=== PATIENT | female | born 1985 | race Caucasian/White ===

== ENCOUNTER 2024-01-18 21:36 | Emergency (ER) | payer OTHER, SELFPAY ==
[2024-01-18 21:50] VITALS: BP 139/81; PULSE 79; RESP 18; TEMP 36.7; O2SAT 98; BMI 23.6
== END 2024-01-18 22:10 | disposition left against medical advice (07) ==
PROVIDERS: Emergency Provider Emergency Medicine; PCP Pediatrics
DX: M54.2 Cervicalgia (principal)
CPT/HCPCS: 99281

== ENCOUNTER 2024-01-19 21:33 | Emergency (ER) | payer OTHER, SELFPAY ==
[2024-01-19 21:44] VITALS: BP 152/86; PULSE 95; RESP 18; TEMP 36.8; O2SAT 100; BMI 24.0
[2024-01-19 22:28] LABS: COVID-19 Test Negative (Negative); IDNOW Serial# 152EDE1D
[2024-01-19 22:31] LABS: IDNOW Serial# 08D9AD1C; Influenza A Negative (Negative); Influenza B2 Negative (Negative)
--- NOTE | 2024-01-20 01:00 | ED.GENADULT ---
HPI - General Adult General Chief complaint: General Medical Stated complaint: possible sinus infection Time Seen by Provider: 01/20/24 00:33 Source: patient and RN notes reviewed Mode of arrival: ambulatory Limitations: no limitations History of Present Illness ED Provider: Leidy ALANIS narrative: 39-year-old healthy female presents for evaluation of facial pain Patient reports that 9 days ago she ?inserted a Zicom swab into her right nostril to prevent herself from getting sick while going on vacation She believes that the cotton tip of the applicator became lodged up in her right nostril She reports sharp pain to the face, sinus pressure and below her right eye. She states that she is having some blurry vision Her pain is radiating to her ears Related Data Previous Rx's ?Medication ?Instructions ?Recorded amoxicillin 500 mg tablet 500 mg PO TID #21 tabs 01/20/24 tramadol 50 mg tablet 50 mg PO Q8H PRN pain #9 tabs 01/20/24 Allergies Allergy/AdvReac Type Severity Reaction Status Date / Time No Known Allergies Allergy Verified 01/19/24 21:51 Review of Systems Constitutional: Constitutional: Denies body ache(s), Denies chills, Denies fever(s) and Reports headache(s) Eyes: Eyes: Denies blurry vision ENT: Denies ear discharge, Reports otalgia, Reports headache(s), Reports nose pain and Reports sinus pain Cardiovascular: Cardiovascular: Denies chest pain and Denies dyspnea Respiratory: Respiratory: Denies cough and Denies dyspnea Gastrointestinal: Gastrointestinal: Denies abdominal pain, Denies nausea and Denies vomiting Musculoskeletal: Musculoskeletal: Denies back pain Neurologic: Reports headache(s) PMFSH Social History Social History Advance Directives: No Advance Directives Information Provided: Yes Do you have a plan to hurt others: No Plan Physical Exam ED Vital Signs: Vital Signs - 24 hr 01/19/24 21:44 Temperature 98.2 F Pulse Rate 95 Respiratory Rate 18 Blood Pressure 152/86 H Pulse Oximetry 100 Oxygen Delivery Method Room Air BMI result Body Mass Index 24.0 Const General: healthy appearing, comfortable, no acute distress, alert and awake Nutritional Appearance: well nourished Orientation/consciousness: patient oriented x3 HENMT Other: Inspection of the right nasal passage does not show any obvious foreign body, no significant edema, no epistaxis Head: Yes normocephalic and Yes atraumatic Ears: TM's normal bilaterally and EAC's normal Face and sinus: No sinuses nontender, No erythema, No edema, Yes sinus tenderness and Yes Facial tenderness on exam of face and sinuses Throat: Yes posterior oropharynx normal Eyes Eyelids: Yes eyelids normal Conjunctivae: conjunctivae normal Sclerae: sclerae normal Corneas: corneas normal Pupils: Equal, round and reactive pupils present EOM: EOMs intact bilaterally Resp Effort & Inspection: normal respiratory effort, able to speak in complete sentences and not labored Skin General skin exam: elasticity normal Neuro General: patient oriented x3 Cranial nerves: Yes Equal, round and reactive pupils present and Yes Bilaterally intact EOM present Cognition (Neuro): normal cognition Extrem Other: Moving all extremities well without any obvious deformities Medical Decision Making Medical Decision Making MDM Narrative: This is a healthy 39-year-old female presenting for evaluation of facial pain, nose pain and a potential foreign body which I can not confirm in the right nostril. We will treat the patient amoxicillin for sinusitis given that she has reported foreign body in the eye for 9 days. We will refer the patient to outpatient ENT with Dr. Arevalo for further evaluation and management. Differential Diagnosis Differential Diagnoses: The differential diagnosis associated with the presentation includes Sinusitis Nasal trauma Epistaxis Foreign body in nostril Lab Data Labs: Lab Results 01/19/24 Range/Units 22:08 COVID-19 (TONYA) Negative (Negative) COVID-19 Clin Com See Note Influenza Type A (RHETT) Negative (Negative) Influenza Type B (RHETT) Negative (Negative) Influenza A & B Note See Note Discharge Plan Discharge Clinical Impression: Sinusitis Patient Disposition: Home, Self-Care Instructions: Sinusitis (ED) Additional Instructions: I was unable to actually see any foreign body in your nasal passage. You may call the office of Dr. Estrada tomorrow morning to schedule a follow-up appointment with a specialist In the meantime, you may use amoxicillin to treat sinusitis Use ibuprofen/Tylenol for pain. You may use tramadol for more severe breakthrough pain This may make you drowsy, do not drink alcohol or drive after taking it Prescriptions: New amoxicillin 500 mg tablet 500 mg PO TID Qty: 21 0RF tramadol 50 mg tablet 50 mg PO Q8H PRN (Reason: pain) Qty: 9 0RF Referrals: Akbar Arevalo [Physician] - (? foreign body in right nasal passage. Unable to visualize) Print Language: [place] Verde[place]
[2024-01-20] MEDS: Amoxicillin 500 MG CAPSULE PO (01:53)
[2024-01-20] MEDS: traMADoL HCL 50 MG TABLET PO (01:53)
[2024-01-20 02:01] VITALS: BP 115/77; PULSE 73; RESP 18; TEMP 36.4; O2SAT 100
[2024-01-20 02:02] VITALS: BP 115/77; PULSE 73; RESP 18; TEMP 36.4; O2SAT 100
== END 2024-01-20 02:00 | disposition home or self-care (01) ==
PROVIDERS: Emergency Provider Emergency Medicine; PCP Pediatrics
DX: J32.9 Chronic sinusitis, unspecified (principal); Z11.52 Encounter for screening for COVID-19; Z79.899 Other long term (current) drug therapy
CPT/HCPCS: 87502; 87635; 99283; 99284

== ENCOUNTER 2024-07-16 09:31 | Emergency (ER) | payer OTHER, SELFPAY ==
--- NOTE | ~2024-07-16 | CT_ITS ---
CLINICAL HISTORY: concern for right sided salivary stone CT soft tissue neck without contrast Comparison: None Findings: Right: Kvjm-ts-kpjrmdciiq enlarged, edematous right submandibular gland with surrounding ebyv-sm-kakdzzou fluid/edematous changes. Wkqe-wh-abojsxdh edematous changes are seen in the right floor of the mouth. No evidence of radiopaque salivary stone. No discrete fluid collection noted on this nonenhanced CT. No evidence of enlarged lymphadenopathy(prominent subcentimeter bilateral neck , likely reactive nodes are seen). Unremarkable parotid glands. Mild nonhomogeneous thyroid gland. Small fluid level in the left maxillary sinus and small right sphenoid sinus polyp/retention cyst. 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 IMPRESSION: Right submandibular sialoadenitis. No evidence of radiopaque salivary stone. Edematous changes extend into the right aspect of the floor of the mouth. No discrete fluid collection noted on this nonenhanced CT. 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 This document has been electronically signed by: Penelope Sorensen MD on 07/16/2024 11:22:58
[2024-07-16 09:37] VITALS: BP 126/87; PULSE 84; RESP 18; TEMP 36.4; O2SAT 100; BMI 24.2
--- NOTE | 2024-07-16 09:41 | ED_ITS ---
HPI - General Adult General Chief complaint: General Medical Stated complaint: swollen glands Time Seen by Provider: 07/16/24 11:35 Source: patient Mode of arrival: ambulatory Limitations: no limitations History of Present Illness ED Provider: Anette Avalos PA-C HPI narrative: Patient is a 39 year old assigned female at with no reported medical history presenting to the emergency department today with right sided throat and under tongue swelling / pain. Patient states that over the last few days she has had right sided throat and under tongue swelling and pain. Patient states that she was diagnosed with influenza a week ago. Patient denies any dizziness, lightheadedness, abdominal pain, nausea, vomiting, fever, chills, blurry vision, double vision, loss of vision, chest pain, difficulty breathing, shortness of breath, back pain, night sweats, pain with urination, increased urinary frequency, increased urinary urgency, blood in her urine or stool, syncope or a near syncopal episode, recent trauma or falls, bowel incontinence, bladder incontinence, or any other complaints at this time. Onset (ago): day(s) Location: neck and right Relieving factors: none Exacerbating factors: other (palpation of the area) Associated symptoms: denies other symptoms Treatments prior to arrival: none Related Data Previous Rx's ?Medication ?Instructions ?Recorded amoxicillin 500 mg tablet 500 mg PO TID #21 tabs 01/20/24 tramadol 50 mg tablet 50 mg PO Q8H PRN pain #9 tabs 01/20/24 oxycodone 5 mg tablet 5 mg PO Q6H PRN break through pain 07/16/24 only #3 tabs Allergies Allergy/AdvReac Type Severity Reaction Status Date / Time No Known Allergies Allergy Verified 07/16/24 09:38 Review of Systems 2 Constitutional: Constitutional: Reports no additional constitutional complaints, Denies chills, Denies fever(s) and Denies night sweats Eyes: Eyes: Reports no additional eye complaints, Denies blurry vision, Denies change in vision, Denies diplopia, Denies eye discharge, Denies loss of vision and Denies eye pain ENT: Denies dizziness Comments: right sided neck pain / neck swelling Cardiovascular: Cardiovascular: Reports no additional cardiovascular complaints, Denies chest pain, Denies lightheadedness, Denies Loss of Consciousness and Denies dyspnea Respiratory: Respiratory: Reports no additional respiratory complaints and Denies dyspnea Gastrointestinal: Gastrointestinal: Reports no additional gastrointestinal complaints, Denies abdominal pain, Denies melena, Denies hematochezia, Denies change in bowel habits and Denies change in stool character Genitourinary: Genitourinary: Denies hematuria, Denies urinary frequency, Denies dysuria, Denies urinary incontinence, Denies urinary hesitancy and Denies urinary urgency Musculoskeletal: Musculoskeletal: Reports no additional musculoskeletal complaints, Denies numbness and Denies tingling Neurologic: Denies dizziness, Denies loss of vision, Denies numbness and Denies tingling Psychiatric: Psychiatric: Reports no additional psychiatric complaints Endocrine: Endocrine: Reports no additional endocrine complaints Hematologic/Lymphatic: Hematologic/Lymphatic: Reports no additional hematologic/lymphatic complaints Allergic/Immunologic: Allergic/Immunologic: Reports no additional allergic/immunologic complaints PMFSH Past Medical History Attestation statement: The following information was validated with the patient. Source: old records reviewed and nursing notes reviewed Social History Social History Alcohol intake: never Advance Directives: No Advance Directives Information Provided: No Do you have a plan to hurt others: No Plan Physical Exam ED Vital Signs: Vital Signs - 24 hr 07/16/24 09:37 07/16/24 11:49 Temperature 97.6 F 97.6 F Pulse Rate 84 84 Respiratory Rate 18 18 Blood Pressure 126/87 126/87 Pulse Oximetry 100 100 Oxygen Delivery Method Room Air Room Air BMI result Body Mass Index 24.2 Const General: cooperative, no acute distress, alert and awake Nutritional Appearance: well nourished Orientation/consciousness: patient oriented x3 Limitations: no limitations [facility] Head: Yes normal to inspection and Yes atraumatic Ears: hearing grossly normal bilaterally and external ears normal General nose exam: Normal external nose present, no nasal discharge noted and no epistaxis Face and sinus: Yes normal facial exam, No abrasion and No laceration Mouth: Normal oral and palatal mucosa present, no drooling and no muffled voice Eyes General: appearance normal, both eyes and all related structures Periorbital: periorbital findings normal Eyelids: Yes eyelids normal Conjunctivae: conjunctivae normal Pupils: Equal, round and reactive pupils present EOM: EOMs intact bilaterally Neck Other: minimal swelling present to the right neck at the TMJ with painful palpation to the area Neck: Yes normal visual inspection and Yes full ROM Chest Chest palpation & inspection: normal inspection of the chest Resp Effort & Inspection: normal respiratory effort and able to speak in complete sentences GI Inspection: Yes normal to inspection Neuro General: patient oriented x3, moves all extremities and CN's II-XI intact bilaterally Cranial nerves: Yes Equal, round and reactive pupils present Cognition (Neuro): normal cognition Extrem General: Yes normal to inspection, Yes full ROM and Yes capillary refill normal Psych Appearance: grossly normal Mental Status: mental status grossly normal Affect: normal affect Attitude: cooperative Thought process: Normal thought process present Thought content: Normal thought content present Insight: Good insight present (Psych) Course Course Course Narrative: RME performed by Anette Avalos PA-C. Patient is a 39 year old assigned female at presenting to the emergency department with right sided neck swelling and concerns of a salivary stone. Detailed physical exam and review of systems are deferred to the retouching operator. Labs, imaging, and swabs ordered. Patient placed back in the waiting room pending room availability and results. Medications Administered Discontinued Medications Generic Name Dose Route Start Last Admin Trade Name Magnusq PRN Reason Stop Dose Admin Acetaminophen 975 mg 07/16/24 10:31 07/16/24 10:37 Acetaminophen 325 Mg Tablet PO 07/16/24 10:32 975 mg ONCE ONE Administration Ibuprofen 600 mg 07/16/24 10:31 07/16/24 10:38 Ibuprofen 600 Mg Tablet PO 07/16/24 10:32 600 mg ONCE ONE Administration Ketorolac Tromethamine 15 mg 07/16/24 11:36 07/16/24 11:45 Ketorolac Tromethamine 15 Mg/Ml Vial IM 07/16/24 11:37 15 mg ONCE ONE Administration Naloxone HCl 8 mg 07/16/24 11:37 07/16/24 11:47 Naloxone Hcl Nasal Take Home 4 Mg [place] NOSTRILALT 07/16/24 11:38 8 mg ONCE ONE Administration Oxycodone HCl 5 mg 07/16/24 11:36 07/16/24 11:45 Oxycodone Hcl Immed Release 5 Mg Tablet PO 07/16/24 11:37 5 mg ONCE ONE Administration Medical Decision Making Medical Decision Making MDM Narrative: Patient is a 39 year old assigned female at with no reported medical history presenting to the emergency department today with right sided throat and under tongue swelling / pain. Patient's physical exam was as noted in the physical exam portion of this note. Patient's blood work was unremarkable. Patient's soft tissue neck CT showed right submdandibular sialoadenitis with no evidence of a stone. When I personally reviewed the imaging, I believe I saw a very small stone present. I believe this patient's symptoms are secondary to a salivary stone. There is no evidence of active infection. I explained my physical exam findings as well as all test results to the patient. I answered all questions asked by the patient. I stressed the importance of the patient taking her medication as directed (either prescribed or as the over the counter packaging recommends). I stressed the importance of the patient following up with her primary care provider. I stressed the importance of the patient returning to the emergency department immediately if her symptoms were to worsen or if she were to develop any dizziness, shortness of breath, difficulty breathing, chest pain, blurry vision, loss of vision, nausea, vomiting, abdominal pain, fever, chills, back pain, or any other complaints. Patient verbalized agreement and understanding with this treatment plan and discharge. Differential Diagnosis Differential Diagnoses: The differential diagnosis associated with the presentation includes Sialoadenitis Salivary stone Admission/Observation Consideration of admission/observation: Escalation of care including admission/observation considered Patient would have been admitted to the hospital had her work up had any findings where hospital admission was appropriate and her clinical presentation warranted hospital admission. Lab Data [facility] Lab Attestation statement: I reviewed the patient's lab results. My interpretation of these results are in the MDM Rationale portion of this note. 07/16/24 09:50 07/16/24 09:50 Labs: Lab Results 07/16/24 Range/Units 09:50 WBC 4.7 L (4.8-10.8) X10*3/uL RBC 4.56 (4.20-5.50) X10*6/uL Hgb 13.7 (12.0-16.0) g/dl Hct 39.6 (37.0-47.0) % MCV 86.8 (80.0-98.0) fL MCH 30.0 (27.0-33.0) pg MCHC 34.6 (31.0-35.0) g/dl RDW 12.2 (11.0-16.0) % Plt Count 236 (160-400) X10*3/uL MPV 8.6 L (9.4-12.3) fL Immature Gran % (Auto) 0.2 (0.0-0.4) % Neut % (Auto) 49.8 (45-73) % Lymph % (Auto) 41.1 H (20-40) % [place] % (Auto) 7.2 (2-11) % Eos % (Auto) 1.5 (0-4) % Baso % (Auto) 0.2 (0-2) % Lymph # (Auto) 1.9 (1.2-4.9) X10*3/uL [place] # (Auto) 0.3 (0.1-1.2) X10*3/uL Eos # (Auto) 0.1 (0.0-0.4) X10*3/uL Baso # (Auto) 0.0 (0.0-0.2) X10*3/uL Abs Immat Gran (auto) 0.01 (0.00-0.03) X10*3/uL Absolute Neuts (auto) 2.4 (2.0-8.3) x10*3/uL Absolute Nucleated RBC 0.000 (0.0-0.012) X10*3/uL Nucleated RBC % (auto) 0.0 (0.0-0.2) /100WBC ESR 10 (0-20) MM/HR Sodium 140 (135-145) mmol/L Potassium 4.5 (3.3-5.1) mmol/L Chloride 109 H (96-108) mmol/L Carbon Dioxide 21 L (22-29) mmol/L Anion Gap 15 (12-20) BUN 13 (9-16) mg/dL Creatinine 0.71 (0.5-1.4) mg/dL Estim Creat Clear Calc 93.7 Estimated GFR > 60 Random Glucose 92 (60-115) mg/dL Calcium 9.3 (8.4-10.2) mg/dL Magnesium 2.2 (1.6-2.6) mg/dL Total Bilirubin 0.7 (0.0-1.0) mg/dL AST 33 H (5-31) U/L ALT 27 (0-31) U/L Alkaline Phosphatase 64 (39-117) U/L C-Reactive Protein 0.22 (< or = 0.50) mg/dL Total Protein 7.8 (6.5-8.0) g/dL Albumin 4.2 (3.5-5.0) g/dL Monoscreen Negative (Negative) Influenza Type A (PCR) NEGATIVE (Negative) Influenza Type B (PCR) NEGATIVE (Negative) RSV RNA Qual (PCR) NEGATIVE (Negative) SARS-CoV-2 RNA (RT-PCR) NEGATIVE (Negative) Independent Interpretation I performed an independent interpretation of an: CT Scan Interpretation: My interpretation is in agreement with the radiologist's impression of this imaging study. L Report Number: [id number]: Total DLP = 378.00 mGy-cm CLINICAL HISTORY: concern for right sided salivary stone CT soft tissue neck without contrast Comparison: None Findings: Right: Pyqn-cw-nfnyzgptmu enlarged, edematous right submandibular gland with surrounding yycq-rc-gsaxxpzg fluid/edematous changes. Nvka-ne-gtxlmaid edematous changes are seen in the right floor of the mouth. No evidence of radiopaque salivary stone. No discrete fluid collection noted on this nonenhanced CT. No evidence of enlarged lymphadenopathy(prominent subcentimeter bilateral neck, likely reactive nodes are seen). Unremarkable parotid glands. Mild nonhomogeneous thyroid gland. Small fluid level in the left maxillary sinus and small right sphenoid sinus polyp/retention cyst. 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 IMPRESSION: Right submandibular sialoadenitis. No evidence of radiopaque salivary stone. Edematous changes extend into the right aspect of the floor of the mouth. No discrete fluid collection noted on this nonenhanced CT. 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 This document has been electronically signed by: Penelope Sorensen MD on 07/16/2024 11:22:58 Dictated By: Penelope Sorensen MD Signed By: Electronically signed by Penelope Sorensen MD 07/16/24 1124 Radiology Impression Discussion of test interpretation with radiology: I have reviewed the radiologist's reading. Prescription Management I considered prescription management with: Pain Medication (patient prescribed pain medication per her request. Patient given narcotic safety info + take home narcan.) Discharge Plan Discharge Clinical Impression: Sialoadenitis Patient Disposition: Home, Self-Care Instructions: Narcotic Safety (ED), Sialoadenitis (ED) Additional Instructions: Suck on hard and sour candies to help promote saliva production to help express the stone. Take tylenol and ibuprofen for pain. You have been given a small dose of oxycodone for break through pain only. Follow up with your primary care provider. Return to the emergency department immediately if your symptoms worsen or if you develop any dizziness, shortness of breath, difficulty breathing, chest pain, blurry vision, loss of vision, nausea, vomiting, abdominal pain, fever, chills, back pain, or any other complaints. Prescriptions: New oxycodone 5 mg tablet 5 mg PO Q6H PRN (Reason: break through pain only) Qty: 3 0RF Rx Instructions: Partial Fill upon patient request. No Action amoxicillin 500 mg tablet 500 mg PO TID Qty: 21 0RF tramadol 50 mg tablet 50 mg PO Q8H PRN (Reason: pain) Qty: 9 0RF Referrals: Sujata Marsh MD [Primary Care Provider] - Stand Alone Forms: Work/School Release Interventions: ED Discharge Assessment Last Done: 07/16/24 11:49 Discharge Date/Time: 07/16/24 11:50 Print Language: Bruneian
[2024-07-16 09:54] LABS: MANUAL DIFF FLAG NO
[2024-07-16 09:59] LABS: Basophils Percent Auto 0.2 % (0-2); Eosinophils Absolute Auto 0.1 X10*3/uL (0.0-0.4); Eosinophils Percent Auto 1.5 % (0-4); Hematocrit 39.6 % (37.0-47.0); Hemoglobin 13.7 g/dl (12.0-16.0); Imm Gran Abs Auto 0.01 X10*3/uL (0.00-0.03); Imm Gran Pct Auto 0.2 % (0.0-0.4); Lymphocytes Absolute Auto 1.9 X10*3/uL (1.2-4.9); Lymphocytes Percent Auto 41.1 % (20-40); Mean Corpuscular HGB Conc 34.6 g/dl (31.0-35.0); Mean Corpuscular Volume 86.8 fL (80.0-98.0); Mean Platelet Volume 8.6 fL (9.4-12.3); Monocytes Absolute Auto 0.3 X10*3/uL (0.1-1.2); Monocytes Percent Auto 7.2 % (2-11); Neutrophils Absolute Auto 2.4 x10*3/uL (2.0-8.3); Neutrophils Percent Auto 49.8 % (45-73); Platelet Count 236 X10*3/uL (160-400); Red Blood Count 4.56 X10*6/uL (4.20-5.50); Red Cell Distribution Width 12.2 % (11.0-16.0); White Blood Count 4.7 X10*3/uL (4.8-10.8)
[2024-07-16 10:09] LABS: Monotest Negative (Negative)
[2024-07-16 10:17] LABS: Alanine Aminotransferase 27 U/L (0-31); Albumin Level 4.2 g/dL (3.5-5.0); Alkaline Phosphatase 64 U/L (39-117); Anion Gap 15 (12-20); Aspartate Amino Transferase 33 U/L (5-31); Bilirubin Total 0.7 mg/dL (0.0-1.0); Blood Urea Nitrogen 13 mg/dL (9-16); C Reactive Protein 0.22 mg/dL (< or = 0.50); Calcium 9.3 mg/dL (8.4-10.2); Carbon Dioxide 21 mmol/L (22-29); Chloride 109 mmol/L (96-108); Creatinine Clr Calc Pharmacy 93.7; Estimated Glomerular Filt Rate > 60; Glucose Random 92 mg/dL (60-115); Magnesium 2.2 mg/dL (1.6-2.6); Potassium 4.5 mmol/L (3.3-5.1); Sodium 140 mmol/L (135-145); Total Protein 7.8 g/dL (6.5-8.0)
[2024-07-16 10:34] LABS: Influenza A PCR NEGATIVE (Negative); Influenza B PCR NEGATIVE (Negative); Resp Syncy Virus RNA Qual PCR NEGATIVE (Negative); SARS COV2 PCR INHOUSE NEGATIVE (Negative)
[2024-07-16 10:36] LABS: Erythrocyte Sedimentation Rate 10 MM/HR (0-20)
[2024-07-16] MEDS: Acetaminophen 325 MG TABLET 975 MG PO (10:37)
[2024-07-16] MEDS: Ibuprofen 600 MG TABLET PO (10:38)
[2024-07-16] MEDS: Ketorolac Tromethamine 15 MG/ML VIAL IM (11:45)
[2024-07-16] MEDS: oxyCODONE HCl Immed Release 5 MG TABLET PO (11:45)
[2024-07-16] MEDS: Naloxone HCl Nasal TAKE HOME 4 MG SPRAY 8 MG NOSTRILALT (11:47)
[2024-07-16 11:49] VITALS: BP 126/87; PULSE 84; RESP 18; TEMP 36.4; O2SAT 100
== END 2024-07-16 11:50 | disposition home or self-care (01) ==
PROVIDERS: Physician Assistant Medical; Emergency Provider Emergency Medicine; PCP Pediatrics
DX: K11.20 Sialoadenitis, unspecified (principal); M54.2 Cervicalgia; Z03.818 Encounter for observation for suspected exposure to other biological agents ruled out; Z79.899 Other long term (current) drug therapy
CPT/HCPCS: 0241U; 70490; 80053; 83735; 85025; 85652; 86140; 86308; 96372; 99283; 99284; J1885

== ENCOUNTER → 2024-07-16 09:41 | Outpatient (BNV) | payer OTHER, SELFPAY | PROVIDERS: Emergency Provider Emergency Medicine; PCP Pediatrics; Visit Provider Radiology Diagnostic Radiology | DX: K11.20 Sialoadenitis, unspecified (principal); Q76.49 Other congenital malformations of spine, not associated with scoliosis | CPT/HCPCS: 70490 ==